=== PATIENT | male | born 2000 | race Caucasian/White ===

== ENCOUNTER → 2022-06-02 15:31 | Outpatient (CLI) | payer OTHER, SELFPAY ==
[2022-06-02 16:45] LABS: COVID19 -Nasal RAPID Negative (Negative)
== END ==
PROVIDERS: PCP Family Medicine; Referring Provider Podiatrist; Visit Provider Podiatrist
DX: Z20.822 Contact with and (suspected) exposure to COVID-19 (principal)
CPT/HCPCS: 36415; 87635; C9803

== ENCOUNTER 2022-06-04 06:12 | Day surgery (SDC) | payer OTHER, SELFPAY ==
[2022-06-03 10:34] VITALS: BMI 39.7
[2022-06-04 06:53] VITALS: PULSE 75; RESP 20; TEMP 36.1; O2SAT 97; BMI 39.7
[2022-06-04] MEDS: LACTATED RINGERS 1,000 ML 42 ML IV (07:04)
--- NOTE | 2022-06-04 07:39 | P.OP_ITS ---
Operative Date/Time/Diagnoses Date of procedure: 06/04/22 Time of procedure: 07:39 Pre-op diagnosis: Right great toe hypertrophic granulation tissue with ingrowing nail. Post-op diagnosis: same Procedure & Clinicians Procedure: Right great toe excision Same procedure as scheduled: Yes Indications: 21-year-old male with painful chronic ingrowing toenail to the right great toe. He has been also suffering with a large granulomatous mass in this area consistent with friction and pressure. Conservative measures have failed lead to alleviate his pain and wished to have surgical intervention at this time. We spoke the risks, potential complications, as well as expected outcomes and alternatives with he and his mother who was present. There were no contraindications to the procedure at this time and consent is given. We discussed once again and their preference is the total nail removal rather than the partial nail removal. Surgeon: Rowan Khan Click Yes if Unassisted: Yes Anesthesia Type: General Operative Notes Closure Type: non-primary Specimen(s): none sent Estimated Blood Loss (mL): 1 Procedure in detail: Patient was brought to the operating room and placed on the operative table in supine position. Following induction of general anesthesia the recorded injectables were delivered to the patient's right great toe. The right foot was prepped and draped in the usual aseptic manner. After check of anesthesia the wound nippers were used to excise the granuloma on the distal lateral portion of the great toe near the nail. Cautery was used to reduce and cauterize the base of the granuloma down to where it was flush back to the normal contour of his skin. Andreas drain was placed about the right ardon llux. The hallux nail was removed gently in total. Cautery was repeated with a granuloma extending at the tip of the hallux under the nail. Cautery was then removed from the field. The surrounding skin was protected with triple antibiotic ointment and a series of 4 applications of phenol at 30 sec each were placed in the area. Following each the area was curetted and after the last was rinsed with alcohol. The andreas tourniquet was removed used for under 6 min total, a prompt hyperemic response was seen to the toe. The area was cleaned and dressed with triple antibiotic ointment, Xeroform, 4x4s, and gently placed coban. Post-operative Condition: stable Disposition: PACU Plan for aftercare: Following a period of postoperative monitoring, the patient will be discharged to home in care of his mother with postoperative instructions having been already reviewed ahead of time and once again today. His 1st dressing change will be tomorrow p.m. along with his soaks, instructions also reviewed once again verbally and written. He has a postoperative shoe he is using and he should elevate the foot when seated at home. Ice on it is not needed. We will see him back for his 1st postoperative visit at his pre schedule time, earlier if concerns prior.
--- NOTE | 2022-06-04 07:39 | PM.PREOP ---
Pre-operative Note COVID-19 COVID-19 status: Negative Result date/Date tested (Pos, Neg/Pending): 06/02/22 Interval Note History & Physical reviewed/Exam performed by Physician: Yes Changes to H&P: No
[2022-06-04] MEDS: CLINDAMYCIN 600 MG/50 ML PIGGYBACK 50 MG IV (07:50)
--- NOTE | 2022-06-04 08:16 | SUR.OPER ---
Supine on padded OR bed, head on pillow, arms secured on padded arm boards at <90 degrees abduction, legs uncrossed, safety belt at waist, tape over blanket over lower left leg, right leg draped free with gel bump under left hip.
[2022-06-04] MEDS: LIDOCAINE 1% 20 ML INJ (08:23)
[2022-06-04] MEDS: BUPIVACAINE 0.5% (PF) VIAL 30 ML INJ (08:23)
[2022-06-04] MEDS: BACITRACIN OINT 0.9 GM PCKT 1 APPLIC TOP (08:24)
--- NOTE | 2022-06-04 08:30 | SUR.OPER ---
andreas tourniquet time 6 min.
[2022-06-04 08:38] VITALS: BP 134/69; PULSE 90; RESP 18; TEMP 36.4; O2SAT 93
[2022-06-04 08:42] VITALS: BP 124/53; PULSE 89; RESP 20; O2SAT 97
[2022-06-04 08:49] VITALS: BP 131/62; PULSE 85; RESP 18; O2SAT 98
[2022-06-04 08:54] VITALS: BP 115/53; PULSE 82; RESP 16; TEMP 36.4; O2SAT 98
[2022-06-04 09:05] VITALS: BP 122/68; PULSE 73; RESP 16; TEMP 36.1; O2SAT 98
== END 2022-06-04 09:22 | disposition home or self-care (01) ==
PROVIDERS: PCP Family Medicine; Referring Provider Podiatrist; Visit Provider Podiatrist
PROC: 0HTRXZZ Resection of Toe Nail, External Approach (ICD-10-PCS; CPT 11750; principal; 2022-06-04 07:45)
DX: L60.0 Ingrowing nail (principal); L92.8 Other granulomatous disorders of the skin and subcutaneous tissue
CPT/HCPCS: 11750; J0330; J2405; J2704; J3010

== ENCOUNTER → 2024-11-08 09:06 | Outpatient (CLI) | payer OTHER, SELFPAY ==
[2024-11-08 09:54] LABS: Add Manual Diff / Slide Review NO; Basophils Absolute Auto 100 /uL (0-100); Basophils Percent Auto 1.1 % (0-2); Eosinophils Absolute Auto 200 /uL (0-450); Hematocrit 44.1 % (41-53); Hemoglobin 15.7 g/dL (13.5-17.5); Lymphocytes Absolute Auto 2800 /uL (1100-4500); Lymphocytes Percent Auto 34.4 % (25-40); Mean Corpuscular HGB Conc 35.7 % (30-36); Mean Corpuscular Hemoglobin 29.7 PG (26-34); Mean Corpuscular Volume 83.4 fL (80-100); Monocytes Absolute Auto 700 /uL (0-900); Monocytes Percent Auto 8.5 % (3-14); Neutrophils Absolute Auto 4300 /uL (1500-7000); Platelet Count 203 X10^3/uL (150-400); Red Blood Cell Count 5.28 X10^6/uL (4.5-5.9); Red Cell Distribution Width 13.2 % (11.6-14.8)
[2024-11-08 10:06] LABS: Alanine Aminotransferase 50 IU/L (<50); Albumin 4.6 g/dL (3.5-5.0); Albumin Globulin Ratio 1.8 (1.0-2.8); Alkaline Phosphatase 68 U/L (38-126); Aspartate Aminotransferase 34 IU/L (17-59); BUN Creatinine Ratio 30.9 (6-22); Bilirubin Total 0.9 mg/dL (0.2-1.3); Blood Urea Nitrogen 21 mg/dL (9-20); Calcium 9.3 mg/dL (8.4-10.2); Carbon Dioxide 19 mmol/L (22-32); Chloride 105 mmol/L (98-107); Cholesterol 247 mg/dL (140-199); Estimated Glomerular Filt Rate > 60 mL/min (>60); Globulin 2.6 g/dL (1.7-4.1); Glucose 93 mg/dL (70-99); HDL Cholesterol 51 mg/dL (40-60); HEMOLYSIS < 15 (0-50); LDL Cholesterol Calculated 159 mg/dL (<100); Potassium 4.2 mmol/L (3.4-5.1); Sodium 135 mmol/L (137-145); Total Protein 7.2 g/dL (6.3-8.2); Triglycerides 187 mg/dL (35-150)
[2024-11-08 10:39] LABS: TSH w/ Reflex to FT4 3.02 uIU/mL (0.47-4.68)
== END ==
PROVIDERS: PCP Family Medicine; Referring Provider Family Medicine; Visit Provider Family Medicine
DX: Z00.00 Encounter for general adult medical examination without abnormal findings (principal); F32.A Depression, unspecified; F84.0 Autistic disorder; Z68.34 Body mass index [BMI] 34.0-34.9, adult; F43.10 Post-traumatic stress disorder, unspecified
CPT/HCPCS: 36415; 80053; 80061; 84443; 85025